=== PATIENT | male | born 1935 | race Caucasian/White ===

== ENCOUNTER 2017-01-28 23:22 | Emergency (ER) | payer MEDICARE, OTHER ==
[~2017-01-28] VITALS: Ht 175.3 cm; Wt 49.2 kg
[~2017-01-28 23:22] MED LIST: EPINEPHRINE SYRINGE 0.1 MG/ML, 10ML ONE; ETOMIDATE 20 MG/10 ML ONE; MIDAZOLAM 1 MG/ML, 5ML ONE; PROPOFOL 10 MG/ML, 100ML IV ONE
[2017-01-29] MEDS ORDERED: SODIUM CHLORIDE 0.9% 1,000ML IVBOLUS ONE
[2017-01-29 00:03] LABS: HEMATOCRIT 46.9 % (39.2-51.8); HEMOGLOBIN 14.4 g/dL (13.7-18.0); WHITE BLOOD COUNT 23.4 x10^3/uL (3.4-10)
[2017-01-29] MEDS ORDERED: VANCOMYCIN PMX 1GM/200ML 200 ML IV ONE (00:30)
[2017-01-29] MEDS ORDERED: VANCOMYCIN PER PHARMACY IV ONE (00:30)
[2017-01-29] MEDS ORDERED: PIPERACILLIN/TAZO/PMX 3.375GM 50 ML IVPB ONE (00:30)
[2017-01-29] MEDS ORDERED: MIDAZOLAM 1 MG/ML, 2ML IVPush ONE (00:30)
[2017-01-29] MEDS ORDERED: PROPOFOL 100 ML IV PRN (00:30)
[2017-01-29 01:00] VITALS: BP 41/23
[2017-01-29] MEDS ORDERED: FAMOTIDINE 20 MG/2 ML ONE (01:26)
[2017-01-29] MEDS ORDERED: DIPHENHYDRAMINE 50 MG/ML, 1ML ONE (01:26)
[2017-01-29] MEDS ORDERED: methylPREDNISolone SOD SUCC 125 MG/2 ML ONE (01:26)
[2017-01-29] MEDS ORDERED: EPINEPHRINE 1 MG/ML, 1ML ONE (01:26)
== END 2017-01-29 04:11 | disposition expired ==
LOC: ED 23:59
DX: A41.9 Sepsis, unspecified organism (principal); J96.02 Acute respiratory failure with hypercapnia; I46.9 Cardiac arrest, cause unspecified; J44.1 Chronic obstructive pulmonary disease with (acute) exacerbation; J15.9 Unspecified bacterial pneumonia; I49.5 Sick sinus syndrome; D72.829 Elevated white blood cell count, unspecified; I10 Essential (primary) hypertension; R41.82 Altered mental status, unspecified; Z87.891 Personal history of nicotine dependence
CPT/HCPCS: 31500; 36415; 36600; 71010; 83605; 84145; 85025; 87040; 87070; 87205; 92950; 93005; 94002; 96360; 96361; 99291; 99292; J2250; J2704; J7030; 80053; 83880; 84484; 96374